=== PATIENT | male | born 1985 | race Caucasian/White ===

== ENCOUNTER 2017-12-03 00:13 | Emergency (ER) | payer SELFPAY ==
--- NOTE | 2017-12-03 01:07 | NUR ---
CALLED FOR PT NO ANSWER LWBT
== END 2017-12-03 01:08 | disposition left against medical advice (07) ==
LOC: ER 00:15
DX: Z53.21 Procedure and treatment not carried out due to patient leaving prior to being seen by health care provider (principal)

== ENCOUNTER 2017-12-04 21:29 | Emergency (ER) | payer SELFPAY ==
--- NOTE | 2017-12-04 22:15 | NUR ---
CALLED FOR PT NO ANSWER LWBT
== END 2017-12-04 22:16 | disposition left against medical advice (07) ==
LOC: ER 21:29
DX: Z53.21 Procedure and treatment not carried out due to patient leaving prior to being seen by health care provider (principal)

== ENCOUNTER 2021-02-17 11:41 | Emergency (ER) | payer BC ==
[~2021-02-17] VITALS: Ht 175.3 cm; Wt 108.9 kg
--- NOTE | 2021-02-17 12:30 | NUR ---
Patient discharged to home in stable condition. Written and verbal after care instructions given. Patient verbalizes understanding of instructions. Stressed follow up or return to ER for worsening s/s.
[2021-02-17 12:31] VITALS: BP 131/89
== END 2021-02-17 12:32 | disposition home or self-care (01) ==
LOC: ER 11:41
DX: B34.9 Viral infection, unspecified (principal); Z86.16 Personal history of COVID-19
CPT/HCPCS: 71045; A4663

== ENCOUNTER 2022-09-07 21:40 | Emergency (ER) | payer BC ==
[~2022-09-07] VITALS: Ht 175.3 cm; Wt 108.9 kg
[2022-09-07] MEDS ORDERED: LORAZEPAM 0.5 MG TABLET PO ONE (22:15)
[2022-09-07] MEDS ORDERED: ASPIRIN 81 MG TAB.CHEW PO ONE (22:15)
[2022-09-07] MEDS ORDERED: ASPIRIN 81 MG TAB.CHEW ONE (22:23)
[2022-09-07] MEDS ORDERED: LORAZEPAM 0.5 MG TABLET ONE (22:23)
[2022-09-07 22:51] LABS: CARBON DIOXIDE 30 mmol/L (21-32); CHLORIDE 100 mmol/L (98-107); CREATININE 1.1 mg/dL (0.6-1.3); GLUCOSE 110 mg/dL (74-106); POTASSIUM 3.8 mmol/L (3.5-5.1); UREA NITROGEN, BLOOD 14 mg/dL (7-18)
[2022-09-07 22:52] LABS: HEMATOCRIT 45.8 % (36.7-47.1); MEAN CORPUSCULAR VOLUME 84.9 fL (73.0-96.2); PLATELET COUNT (AUTO) 306 K/uL (152-348)
[2022-09-07 23:04] LABS: ALANINE AMINOTRANSFERASE 85 U/L (16-63); ALKALINE PHOSPHATASE 116 U/L (50-136); ASPARTATE AMINOTRANSFERASE 35 U/L (15-37); BILIRUBIN,DIRECT < 0.1 mg/dL (0.0-0.2); BILIRUBIN,TOTAL 0.3 mg/dL (0.2-1.0); TOTAL PROTEIN, SERUM 7.6 g/dL (6.4-8.2)
[2022-09-07 23:39] VITALS: BP 138/75
--- NOTE | 2022-09-07 23:48 | NUR ---
Patient presented to the ER with complaints of chest pain for the past few hours. Patient examined by physician. EKG, Xray, and labs completed; prescribed medication given. Patient decided to leave against medical advice. Patient departed ambulatory.
== END 2022-09-07 23:49 | disposition home or self-care (01) ==
LOC: ER 21:42
DX: R07.9 Chest pain, unspecified (principal); Z53.29 Procedure and treatment not carried out because of patient's decision for other reasons; R03.0 Elevated blood-pressure reading, without diagnosis of hypertension; Z86.16 Personal history of COVID-19
CPT/HCPCS: 36415; 71045; 84484; 85025; 93005; A4663

== ENCOUNTER 2023-01-16 18:51 | Emergency (ER) | payer BC, MEDICAID ==
[~2023-01-16] VITALS: Ht 175.3 cm; Wt 108.9 kg
--- NOTE | 2023-01-16 20:00 | NUR ---
Dr. Colin at bedside for MSE.
[2023-01-16] MEDS ORDERED: ONDANSETRON HCL 4 MG TABLET ONE (20:07)
[2023-01-16] MEDS: ONDANSETRON HCL 4 MG TABLET PO ONE (20:08)
--- NOTE | 2023-01-16 20:08 | NUR ---
Xray at bedside.
[2023-01-16] MEDS ORDERED: HYDR-3980 PO (20:40)
[2023-01-16] MEDS ORDERED: ONDA4TAB5 PO (20:41)
[2023-01-16 20:55] VITALS: BP 137/84
--- NOTE | 2023-01-16 20:55 | NUR ---
Patient discharged to home in stable condition. Written and verbal after care instructions given. Patient verbalizes understanding of instructions. Stressed follow up or return to ER for worsening s/s. Patient out of ER with steady gait, no acute signs of distress, VSS, all belongings taken, provided with copies of xray results.
== END 2023-01-16 20:56 | disposition home or self-care (01) ==
LOC: ER 18:52
DX: S16.1XXA Strain of muscle, fascia and tendon at neck level, initial encounter (principal); Z79.899 Other long term (current) drug therapy; V89.2XXA Person injured in unspecified motor-vehicle accident, traffic, initial encounter; Y93.89 Activity, other specified; Y92.89 Other specified places as the place of occurrence of the external cause; Y99.8 Other external cause status
CPT/HCPCS: 72072; A4663; Q0162